=== PATIENT | male | born 1955 | race African-American/Black ===

== ENCOUNTER 2016-10-09 08:02 | Day surgery (SDC) | payer OTHER ==
--- NOTE | ~2016-10-09 | EGD ---
EGD REPORT [facility] [address] [address] NAME: SCHUYLER RAVI JR : 53 STATUS : REG [facility]#: [id number] AGE: 61 ADM/REG DATE : 10/09/16 MR#: [id number] REPORT SERV DATE: 10/09/16 DICTATED BY: LATA RODRIGUEZ III DATE: 10/09/16 REPORT STATUS : Draft TRANSCRIBED BY: [facility] DATE: 10/09/16 [facility] Patient Name: Schuyler Ravi Jr Date of : 1955 Attending MD: LATA RODRIGUEZ III, MD Procedure Date No Time: 10/09/2016 Procedure: Colonoscopy Indications: High risk colon cancer surveillance: Personal history of colonic polyps Referring MD: VÍCTOR KHAN Medicines: Propofol per Anesthesia Complications: No immediate complications. Procedure: Pre-Anesthesia Assessment: - ASA Grade Assessment: III - A patient with severe systemic disease. After I obtained informed consent, the scope was passed under direct vision. Throughout the procedure, the patient's blood pressure, pulse, and oxygen saturations were monitored continuously. The [facility] [id number] was introduced through the anus and advanced to the cecum, identified by appendiceal orifice and ileocecal valve. The colonoscopy was performed with ease. The patient tolerated the procedure well. The quality of the bowel preparation was good. Findings: Multiple small-mouthed diverticula were found in the sigmoid colon. External and internal hemorrhoids were found during retroflexion. Four sessile polyps were found in the ascending colon. The polyps were 4 to 6 mm in size. These polyps were removed with a cold snare. Resection and retrieval were complete. These polyps were removed with a cold biopsy forceps. Resection and retrieval were complete. A sessile polyp was found in the transverse colon. The polyp was 5 mm in size. The polyp was removed with a cold snare. Resection and retrieval were complete. A sessile polyp was found in the sigmoid colon. The polyp was 10 mm in size. The polyp was removed with a cold snare. Resection and retrieval were complete. Impression: - Diverticulosis in the sigmoid colon. - External and internal hemorrhoids. - Four 4 to 6 mm polyps in the ascending colon. Resected and retrieved. - One 5 mm polyp in the transverse colon. Resected and retrieved. EGD REPORT [facility] [address] [place]. [address] NAME: SCHUYLER RAVI JR : [birth year] STATUS : REG [facility]#: [id number] AGE: 61 ADM/REG DATE : 10/09/16 MR#: [id number] REPORT SERV DATE: 10/09/16 DICTATED BY: LATA RODRIGUEZ III DATE: 10/09/16 REPORT STATUS : Draft TRANSCRIBED BY: [facility] DATE: 10/09/16 - One 10 mm polyp in the sigmoid colon. Resected and retrieved. Recommendation: - Patient has a contact number available for emergencies. The signs and symptoms of potential delayed complications were discussed with the patient. Return to normal activities tomorrow. Written discharge instructions were provided to the patient. - Discharge patient to home. - High fiber diet indefinitely. - Continue present medications. - Await pathology results. Procedure Code(s): --- Professional --- 99813, Colonoscopy, flexible, proximal to splenic flexure; with removal of tumor(s), polyp(s), or other lesion(s) by snare technique Diagnosis Code(s): --- Professional --- K64.8, Other hemorrhoids K57.30, Diverticulosis of large intestine without perforation or abscess without bleeding D12.5, Benign neoplasm of sigmoid colon D12.3, Benign neoplasm of transverse colon D12.2, Benign neoplasm of ascending colon Z86.010, Personal history of colonic polyps CPT copyright 2013 [employer]. All rights reserved. The codes documented in this report are preliminary and upon supervisor histology review may be revised to meet current compliance requirements. LATA RODRIGUEZ III, MD 10/09/2016 9:39 AM This report has been signed electronically. Number of Addenda: 0 Note Initiated On: 10/09/2016 9:16 AM [address] [address]
[~2016-10-09 08:02] MED LIST: ADVAIR115P INH; ADVAIR250 INH; ALBUTEROL5 INH; EXFORGE1 TA2 PO; JANUMET XR 50-1 EACH PO; MULTIVITAMI1 PO; PROAIR HFA; PROVENT20 INH; SINGULAIR1 PO; ZOCOR20 PO; [UNRECOGNIZED DRUG - OTHER] PO
== END 2016-10-09 23:59 | disposition home or self-care (01) ==
LOC: DMU 08:02
PROVIDERS: Internal Medicine Gastroenterology
PROC: 0DBK8ZZ Excision of Ascending Colon, Via Natural or Artificial Opening Endoscopic (ICD-10-PCS; 2016-10-09)
PROC: 0DBL8ZZ Excision of Transverse Colon, Via Natural or Artificial Opening Endoscopic (ICD-10-PCS; principal; 2016-10-09 09:00)
PROC: 0DBN8ZZ Excision of Sigmoid Colon, Via Natural or Artificial Opening Endoscopic (ICD-10-PCS; 2016-10-09 09:00)
DX: D12.2 Benign neoplasm of ascending colon (principal); D12.3 Benign neoplasm of transverse colon; D12.5 Benign neoplasm of sigmoid colon; K57.30 Diverticulosis of large intestine without perforation or abscess without bleeding; K64.8 Other hemorrhoids; K64.4 Residual hemorrhoidal skin tags; Z86.010 Personal history of colon polyps; I10 Essential (primary) hypertension; E78.00 Pure hypercholesterolemia, unspecified; E11.9 Type 2 diabetes mellitus without complications; J45.909 Unspecified asthma, uncomplicated; G47.33 Obstructive sleep apnea (adult) (pediatric); Z99.89 Dependence on other enabling machines and devices; Z79.51 Long term (current) use of inhaled steroids; Z79.84 Long term (current) use of oral hypoglycemic drugs; Z79.899 Other long term (current) drug therapy; Z98.890 Other specified postprocedural states
CPT/HCPCS: 82962; 88305